=== PATIENT | female | born 2005 | race Two or more races ===

== ENCOUNTER → 2025-06-22 | Outpatient (CLI) | payer MEDICAID ==
[~2025-06-22] MED LIST: GADOTERATE MEGLUMINE 7.5 MMOL/15 ML VIAL IV ONE; LIDOcaine 1% 30ml preserv. free vial ONE; LIDOcaine 1%/PF 5ML 10 MG/ML VIAL ONE; iohexol 300 MG/1 ML 50ml polymer ONE
--- NOTE | 2025-06-22 08:57 | RADIOLOGY REPORT ---
ANGIO ARTHROGRAM (A) Date: 06/22/2025 07:38 AM Clinical History: PAIN IN LEFT HIP Comparison: None Procedure: Verbal and written informed consent were obtained from the patient for the procedure of left hip fluoroscopically guided arthrogram, after the procedure, risks, and benefits of the procedure were explained to the patient. Risks include bleeding, infection, reaction to injected medications, and damage to surrounding anatomic structures. The patient's questions were answered. The patient's most recent medical history was reviewed. A time out was performed to verify the patient's name, date of , and correct location of the procedure, prior to initiation of the procedure. The patient was placed supine on the fluoroscopic table and the area overlying the left hip was prepped and draped in the usual sterile fashion. The patient tolerated the procedure well. There were no immediate complications. Home-care instructions were reviewed with the patient prior to the patient's discharge from the fluoroscopy suite. The patient verbally affirmed understanding of these instructions. Impression: Technically successful fluoroscopically guided left hip arthrogram. The patient was transported to MRI for further imaging at the completion of the procedure. Procedure by Dr. Rao
--- NOTE | 2025-06-22 11:13 | RADIOLOGY REPORT ---
CLINICAL INDICATION: PAIN IN LEFT HIP COMPARISON: None TECHNIQUE: Multiplanar, multi-sequence MR arthrogram of the left hip was performed with intra-articular contrast. Please see separate procedure report. The contralateral hip is included on some of the sequences. Contrast: None INTERPRETATION: Joint space: There is adequate distention of the left hip joint with dilute contrast. Visualized portions of the contralateral hip are grossly unremarkable as visualized on the large [id number] images. Bones and articular cartilage: There is no fracture, bone marrow edema or avascular necrosis. The alignment is normal. There is no focal articular cartilage defect. Tendons, muscles and bursae: There is no tendon abnormality. Regional muscles are normal in signal characteristics and size /bulk. There is no evidence of bursitis. Acetabular labrum: There is a contrast filling a defect suggesting tear of the anterior superior, direct superior and posterior superior left acetabular labrum. IMPRESSION: 1. Tear of the left acetabular labrum involving the anterior superior, direct superior and posterior superior labral segments. 2. No significant degenerative changes or tendon injury.
== END | disposition home or self-care (01) ==
LOC: RAD 06:22
PROVIDERS: ATTEND Family Medicine Sports Medicine
DX: S73.192A Other sprain of left hip, initial encounter (principal); M77.9 Enthesopathy, unspecified; M25.552 Pain in left hip; Z79.899 Other long term (current) drug therapy; Z98.818 Other dental procedure status; X58.XXXA Exposure to other specified factors, initial encounter; Y93.89 Activity, other specified; Y92.89 Other specified places as the place of occurrence of the external cause; Y99.8 Other external cause status
CPT/HCPCS: 27093; 73722; 77002; A9575; J2003; J3490; Q9967